=== PATIENT | female | born 1990 | race Caucasian/White ===

== ENCOUNTER 2018-03-01 09:33 | Emergency (ER) | payer OTHER ==
[2018-03-01 09:41] VITALS: BMI 33.5
[2018-03-01 09:54] VITALS: RESP 18; TEMP 98.7
[2018-03-01] MEDS ORDERED: Sodium Chloride 0.9% 1,000 ML IV STA (10:05)
--- NOTE | 2018-03-01 10:10 | ED PDOC ---
Arrival/HPI - General Chief Complaint: GI Problem Time Seen by Provider: 03/01/18 09:38 Historian: Patient - History of Present Illness Narrative History of Present Illness (Text): 03/01/18 10:07 This 27 yo female with pmh of constipation, presents to to this ED c/o LLQ abdominal pain x 2 hours. Patient admits having soft stool for 2 months. Patient denies sob, cp, n/v, recent travel, sick contact, weakness, paresthesias , or abnormal gait. Time/Duration: Other (see hpi) Quality: Aching, Cramping Context: Home Past Medical History - Provider Review Nursing Documentation Reviewed: Yes - Infectious Disease Hx of Infectious Diseases: None - Psychiatric Hx Substance Use: No - Anesthesia Hx Anesthesia: No Family/Social History - Physician Review Nursing Documentation Reviewed: Yes Family/Social History: Other (noncontributory) Smoking Status: Never Smoked Hx Alcohol Use: No Hx Substance Use: No Allergies/Home Meds Allergies/Adverse Reactions: Allergies No Known Allergies Allergy (Verified 03/01/18 09:41) Review of Systems - Review of Systems Constitutional: Normal. absent: Fatigue, Weight Change, Fevers Eyes: Normal ENT: Normal Respiratory: Normal. absent: SOB, Cough Cardiovascular: Normal. absent: Chest Pain, Palpitations Gastrointestinal: Abdominal Pain, Constipation, Diarrhea. absent: Nausea, Vomiting Genitourinary Female: Normal. absent: Dysuria, Frequency, Hematuria, Vaginal Bleeding, Vaginal Discharge Musculoskeletal: Normal. absent: Back Pain, Neck Pain Skin: Normal. absent: Rash Neurological: Normal. absent: Headache, Dizziness, Focal Weakness, Gait Changes , Speech Changes, Facial Droop Endocrine: Normal Hemo/Lymphatic: Normal Psychiatric: Normal Physical Exam Vital Signs Temp Pulse Resp BP Pulse Ox 03/01/18 09:48 98.7 F 85 18 128/75 98 Temperature: Afebrile Blood Pressure: Normal Pulse: Regular Respiratory Rate: Normal Appearance: Positive for: Well-Appearing, Non-Toxic, Comfortable Pain Distress: None Mental Status: Positive for: Alert and Oriented X 3 - Systems Exam Head: Present: Atraumatic, Normocephalic Pupils: Present: PERRL Extroacular Muscles: Present: EOMI Conjunctiva: Present: Normal Mouth: Present: Moist Mucous Membranes Neck: Present: Normal Range of Motion. No: Meningeal Signs Respiratory/Chest: Present: Clear to Auscultation, Good Air Exchange. No: Respiratory Distress, Accessory Muscle Use Cardiovascular: Present: Regular Rate and Rhythm, Normal S1, S2. No: Murmurs Abdomen: Present: Tenderness (mild LLQ abd. tenderness.). No: Distention, Peritoneal Signs, Rebound, Guarding Back: Present: Normal Inspection. No: CVA Tenderness Upper Extremity: Present: Normal Inspection, Normal ROM. No: Cyanosis, Edema Lower Extremity: Present: Normal Inspection, Normal ROM. No: Edema Neurological: Present: GCS=15, CN II-XII Intact, Speech Normal, Motor Func Grossly Intact, Normal Sensory Function, Normal Cerebellar Funct, Gait Normal, Memory Normal Skin: Present: Warm, Dry, Normal Color. No: Rashes Psychiatric: Present: Alert, Oriented x 3, Normal Insight, Normal Concentration Medical Decision Making ED Course and Treatment: 03/01/18 12:08 Patient feels better. Patient was recommended to f/u [facility] in 1-2 days. Take medication as instructed. Return to ED if symptoms worsen. Re-evaluation Time: 12:08 Reassessment Condition: Re-examined, Improved - Lab Interpretations Lab Results: 03/01/18 10:25 03/01/18 10:25 Lab Results 03/01/18 10:55: Urine Color Yellow, Urine Appearance Clear, Urine pH 6.0, Ur Specific [place] >= 1.030, Urine Protein Negative, Urine Glucose (UA) Negative, Urine Ketones Negative, Urine Blood Negative, Urine Nitrate Negative, Urine Bilirubin Negative, Urine Urobilinogen 0.2, Ur Leukocyte Esterase Negative, Urine HCG, Qual Negative 03/01/18 10:25: Sodium 140, Potassium 4.1, Chloride 106, Carbon Dioxide 23, Anion Gap 15, BUN 13, Creatinine 0.6 L, Est GFR ( Amer) > 60, Est GFR ( Non-Af Amer) > 60, Random Glucose 111 H, Calcium 9.5, Total Bilirubin 0.8, AST 23, ALT 38, Alkaline Phosphatase 49, Total Protein 6.9, Albumin 3.7, Globulin 3.2, Albumin/Globulin Ratio 1.2, Lipase 75 03/01/18 10:25: WBC 12.7 H, RBC 4.19, Hgb 12.8, Hct 37.6, MCV 89.7, MCH 30.5, MCHC 34.0, RDW 12.7, Plt Count 274, MPV 10.1, Gran % 75.6 H, Lymph % (Auto) 17.8 L, [place] % (Auto) 5.0, Eos % (Auto) 1.3 L, Baso % (Auto) 0.3, Gran # 9.62 H , Lymph # (Auto) 2.3, [place] # (Auto) 0.6, Eos # (Auto) 0.2, Baso # (Auto) 0.04 I have reviewed the lab results: Yes Interpretation: No clinic. lab abnormalty - RAD Interpretation Narrative RAD Interpretations (Text): 03/01/18 12:07 PROCEDURE: CT Abdomen and Pelvis with contrast FINDINGS: LOWER THORAX: Unremarkable. LIVER: Unremarkable. No gross lesion or ductal dilatation. GALLBLADDER AND BILE DUCTS: Unremarkable. PANCREAS: Unremarkable. No gross lesion or ductal dilatation. SPLEEN: Unremarkable. ADRENALS: Unremarkable. No mass. KIDNEYS AND URETERS: Unremarkable. No hydronephrosis. No solid mass. VASCULATURE: Unremarkable. No aortic aneurysm. BOWEL: Unremarkable. No obstruction. No gross mural thickening. APPENDIX: Normal appendix. PERITONEUM: Unremarkable. No free fluid. No free air. LYMPH NODES: Unremarkable. No enlarged lymph nodes. BLADDER: Unremarkable. REPRODUCTIVE: There is a fatty density debris-filled lesion in the right adnexa consistent with a dermoid. This measures 26 x 33 mm and measures -35 Hounsfield units in density. There is a thick-walled collapsed ovarian cyst on the left measuring 14 x 32 mm consistent with recent cyst rupture. There is a moderate amount of free fluid in the pelvis. BONES: No acute fracture. OTHER FINDINGS: None. IMPRESSION: There is a fatty density debris-filled lesion in the right adnexa consistent with a dermoid. This measures 26 x 33 mm and measures -35 Hounsfield units in density. There is a thick-walled collapsed ovarian cyst on the left measuring 14 x 32 mm consistent with recent cyst rupture. There is a moderate amount of free fluid in the pelvis. Radiology Orders: 03/01/18 10:06 ABD & PELVIS IV CONTRAST ONLY [CT] Stat - Medication Orders Current Medication Orders: Discontinued Medications Famotidine (Pepcid) 20 mg IVP STAT STA Stop: 03/01/18 10:06 Last Admin: 03/01/18 10:24 Dose: 20 mg IVP Administration Document 03/01/18 10:24 GMD (Rec: 03/01/18 10:24 GMD [id number]) Charges for Administration # of IVP Administrations 1 Sodium Chloride (Sodium Chloride 0.9%) 1,000 mls @ 1,000 mls/hr IV .Q1H STA Stop: 03/01/18 11:04 Last Admin: 03/01/18 10:24 Dose: 1,000 mls/hr eMAR Start Stop Document 03/01/18 10:24 GMD (Rec: 03/01/18 10:24 GMD [id number]) Intravenous Solution Start Date 03/01/18 Start Time 10:24 End Date 03/01/18 End time 11:24 Total Infusion Time 60 Ketorolac Tromethamine (Toradol) 15 mg IVP STAT STA Stop: 03/01/18 10:06 Last Admin: 03/01/18 10:50 Dose: 15 mg MAR Pain Assessment Document 03/01/18 10:50 GMD (Rec: 03/01/18 10:50 GMD [id number]) Pain Reassessment Is this a pain reassessment? No Presence of Pain Presence of Pain Yes IVP Administration Document 03/01/18 10:50 GMD (Rec: 03/01/18 10:50 GMD [id number]) Charges for Administration # of IVP Administrations 1 Disposition/Present on Arrival - Present on Arrival Any Indicators Present on Arrival: No History of DVT/PE: No History of Uncontrolled Diabetes: No Urinary Catheter: No History of Decub. Ulcer: No History Surgical Site Infection Following: None - Disposition Have Diagnosis and Disposition been Completed?: Yes Diagnosis: Dermoid, Ruptured ovarian cyst Disposition: HOME/ ROUTINE Disposition Time: 12:09 Patient Plan: Discharge Patient Problems: Current Active Problems Problem Status Onset Dermoid Acute Ruptured ovarian cyst Acute Condition: GOOD Discharge Instructions (ExitCare): Ovarian Cyst Removal (DC) Additional Instructions: Call private [facility] doctor for follow up visit in 1-2 days. Take medication as instructed. Return to emergency if symptoms worsen. Prescriptions: Ibuprofen [Motrin] 600 mg PO Q8 PRN #20 tab PRN Reason: Pain, Severe (8-10) Referrals: [facility] [Outside] - [facility] with [facility] [[facility] - Follow up with primary Forms: [facility] (Kinyarwanda), WORK NOTE
[2018-03-01 10:31] LABS: BASO # 0.04 K/mm3 (0.0-2.0); BASO % 0.3 % (0.0-3.0); EOS # 0.2 (0.0-0.7); EOS % 1.3 % (1.5-5.0); GRAN # 9.62 (1.4-6.5); GRAN % 75.6 % (50.0-68.0); HEMOGLOBIN 12.8 g/dL (12.0-16.0); LYMPH # 2.3 (1.2-3.4); LYMPH % 17.8 % (22.0-35.0); MEAN CELL VOLUME 89.7 fl (80.0-105.0); MEAN CORPUSCULAR HEMOGLOBIN 30.5 pg (25.0-35.0); MEAN PLATELET VOLUME 10.1 fl (7.0-11.0); MONO # 0.6 (0.1-0.6); RBC 4.19 10^6/uL (3.5-6.1); RED CELL DISTRIBUTION WIDTH 12.7 % (11.5-14.5); WHITE BLOOD COUNT 12.7 10^3/ul (4.5-11.0)
[2018-03-01 10:47] LABS: ALB/GLOB RATIO 1.2 (1.1-1.8); ALBUMIN 3.7 g/dL (3.0-4.8); ALT/SGPT 38 U/L (7-56); AST/SGOT 23 U/L (14-36); BLOOD UREA NITROGEN 13 mg/dL (7-21); CALCIUM 9.5 mg/dL (8.4-10.5); GFR AFRICAN-AMERICAN > 60; GFR NON-AFRICAN AMERICAN > 60; LIPASE 75 U/L (23-300)
[2018-03-01 10:59] LABS: URINE BILIRUBIN NEGATIVE (NEGATIVE); URINE BLOOD NEGATIVE (NEGATIVE); URINE GLUCOSE (UA) NEGATIVE (NEGATIVE); URINE LEUKOCYTE ESTERASE NEGATIVE Leu/uL (NEGATIVE); URINE PROTEIN NEGATIVE mg/dL (<30 mg/dL); URINE UROBILINOGEN 0.2 E.U./dL (<1 E.U./dL)
[2018-03-01 11:00] LABS: URINE APPEARANCE CLEAR (CLEAR); URINE COLOR YELLOW (YELLOW)
[2018-03-01 11:01] LABS: HCG,QUALITATIVE URINE NEGATIVE (NEGATIVE)
[2018-03-01] MEDS ORDERED: Iohexol 350 MG/100 ML VIAL ONE (11:08)
--- NOTE | 2018-03-01 11:50 | CT ---
PROCEDURE: CT Abdomen and Pelvis with contrast HISTORY: LLQ abdominal pain COMPARISON: None. TECHNIQUE: Contrast dose: 100 cc of Omni 350 Radiation dose: Total exam DLP = 778 mGy-cm. This CT exam was performed using one or more of the following dose reduction techniques: Automated exposure control, adjustment of the mA and/or kV according to patient size, and/or use of iterative reconstruction technique. FINDINGS: LOWER THORAX: Unremarkable. LIVER: Unremarkable. No gross lesion or ductal dilatation. GALLBLADDER AND BILE DUCTS: Unremarkable. PANCREAS: Unremarkable. No gross lesion or ductal dilatation. SPLEEN: Unremarkable. ADRENALS: Unremarkable. No mass. KIDNEYS AND URETERS: Unremarkable. No hydronephrosis. No solid mass. VASCULATURE: Unremarkable. No aortic aneurysm. BOWEL: Unremarkable. No obstruction. No gross mural thickening. APPENDIX: Normal appendix. PERITONEUM: Unremarkable. No free fluid. No free air. LYMPH NODES: Unremarkable. No enlarged lymph nodes. BLADDER: Unremarkable. REPRODUCTIVE: There is a fatty density debris-filled lesion in the right adnexa consistent with a dermoid. This measures 26 x 33 mm and measures -35 Hounsfield units in density. There is a thick-walled collapsed ovarian cyst on the left measuring 14 x 32 mm consistent with recent cyst rupture. There is a moderate amount of free fluid in the pelvis. BONES: No acute fracture. OTHER FINDINGS: None. IMPRESSION: There is a fatty density debris-filled lesion in the right adnexa consistent with a dermoid. This measures 26 x 33 mm and measures -35 Hounsfield units in density. There is a thick-walled collapsed ovarian cyst on the left measuring 14 x 32 mm consistent with recent cyst rupture. There is a moderate amount of free fluid in the pelvis.
[2018-03-01 12:29] VITALS: BP 117/68; PULSE 84; O2SAT 100
== END 2018-03-01 12:29 | disposition home or self-care (01) ==
LOC: ED 09:33
DX: D27.0 Benign neoplasm of right ovary (principal); N83.202 Unspecified ovarian cyst, left side
CPT/HCPCS: 74177; 80053; 81003; 83690; 84703; 85025; 96361; 96374; 96375; 99284; J1885; J7040; Q9967